=== PATIENT | male | born 1990 | race Caucasian/White ===

== ENCOUNTER 2023-08-23 10:28 | Emergency (ER) | payer SELFPAY ==
[2023-08-23] MEDS ORDERED: Ketorolac Tromethamine 30 MG/ML VIAL ONE (11:02)
== END 2023-08-23 11:28 | disposition home or self-care (01) ==
LOC: ERS 10:28
DX: M25.561 Pain in right knee (principal); M25.551 Pain in right hip; F17.210 Nicotine dependence, cigarettes, uncomplicated; X50.1XXA Overexertion from prolonged static or awkward postures, initial encounter
CPT/HCPCS: 96372; J1885

== ENCOUNTER 2023-08-30 00:59 | Emergency (ER) | payer SELFPAY ==
[2023-08-30] MEDS ORDERED: Acetaminophen 500 MG TAB ONE (04:32)
[2023-08-30] MEDS ORDERED: Ketorolac Tromethamine 30 MG/ML VIAL ONE (04:32)
== END 2023-08-30 04:57 | disposition home or self-care (01) ==
LOC: ERS 00:59
DX: M25.561 Pain in right knee (principal); F17.210 Nicotine dependence, cigarettes, uncomplicated
CPT/HCPCS: 96372; 99283; J1885

== ENCOUNTER 2023-09-11 07:48 | Emergency (ER) | payer SELFPAY | END 2023-09-11 09:02 | disposition home or self-care (01) | LOC: ERS 07:48 | DX: M25.561 Pain in right knee (principal); F17.210 Nicotine dependence, cigarettes, uncomplicated | CPT/HCPCS: 99283 ==